=== PATIENT | female | born 1985 | race American Indian/Alaskan Native ===

== ENCOUNTER 2017-01-12 19:30 | Emergency (ER) | payer SELFPAY ==
[2017-01-12 20:15] VITALS: BP 120/79
[2017-01-12 20:57] LABS: Anion Gap 17 mmol/L; Blood Urea Nitrogen 8 mg/dL (7-17); Calcium 8.6 mg/dL (8.4-10.2); Carbon Dioxide 27 mmol/L (22-30); Glucose 93 mg/dL (65-100); Potassium 3.9 mmol/L (3.6-5.0); Sodium 136 mmol/L (137-145)
[2017-01-12 20:59] LABS: Mean Corpuscular HGB Conc 30 % (30-34); Platelet Count 338 K/mm3 (140-440); Red Blood Count 5.31 M/mm3 (3.65-5.03); Red Cell Distribution Width 18.4 % (13.2-15.2); White Blood Count 13.9 K/mm3 (4.5-11.0)
[2017-01-12 21:00] LABS: Hematocrit 33.4 % (30.3-42.9); Hemoglobin 9.9 gm/dl (10.1-14.3); Mean Corpuscular Hemoglobin 19 pg (28-32); Mean Corpuscular Volume 63 fl (79-97)
[2017-01-12 21:11] LABS: Bacteria,Urine 1+ /HPF (Negative); Bilirubin,Urine NEG (Negative); Blood,Urine NEG (Negative); Ketones,Urine TR mg/dL (Negative); Leukocyte Esterase,Urine MOD (Negative); Mucus,Urine 2+ /HPF; Nitrite,Urine NEG (Negative); WBC,Urine < 1.0 /HPF (0.0-6.0)
== END 2017-01-13 08:55 | disposition left against medical advice (07) ==
LOC: ED 19:30
DX: R10.9 Unspecified abdominal pain (principal); Z53.21 Procedure and treatment not carried out due to patient leaving prior to being seen by health care provider
CPT/HCPCS: 36415; 80048; 81001; 81025; 85027